=== PATIENT | female | born 1950 | race Caucasian/White ===

== ENCOUNTER → 2016-12-24 | Day surgery (SDC) | payer MEDICARE, BC, OTHER ==
[~2016-12-24] MED LIST: ALBUAER3 INH; ALPHTAB PO; AMLO2.5T PO; ASPI325T PO; ASTA1CAP2 PO; BACL20TA PO; BIOT1SUB SL; BUPIVACAINE HCL PF 0.5% 30 ML VIAL ONE; BUPR100CR PO; FURO1TAB62 PO; LEVO25TA4 PO; LIDO0.052; LOSA50TA PO; METF500T PO; MULT-142 PO; OCUVTAB PO; OPTI0.5D EACH EYE; POTA-163 PO; PROPOFOL 200 MG/20 ML AMP IV ONE; SIMV40TA PO; TIOT1AER INH; TRIAMCINOLONE ACETONIDE 40 MG/ML VIAL I-ARTICULR ONE; VITA10003 PO; ZYRT10CA PO; methylPREDNISolone ACETATE 40 MG/ML VIAL I-ARTICULR ONE
--- NOTE | 2016-12-29 06:22 | M6 ---
cc: JUVENAL HOBSON M.D. DATE: 12/24/2016 DATE OF : 06/16/1958 PROCEDURE Fluoroscopically guided injection bilateral sacroiliac joints. History and physical was completed and signed. Consent was signed. Procedure site was marked. Medications were listed and reconciled. Pain score was recorded. Allergies were noted. Time out was taken. Fluoroscopy time was recorded where applicable. Sedation was administered or directed by Dr. Hobson. The patient was given oxygen. The patient was monitored by a registered nurse. Total procedure time was greater than 15 minutes. PROCEDURE NOTE: IV was started, blood pressure cuff, pulse oximeter and EKG were applied. The patient was placed in the prone position on a Myles table sedated with small amounts of propofol titrated to effect. Vital signs were monitored and remained stable throughout the procedure. The lumbar area was prepped with alcohol and 10% Betadine solution, draped with sterile drapes. Fluoroscopy was used shooting from medial to lateral to clearly visualize the posterior joint line of the bilateral sacroiliac joints. Separate sterile 5-inch 22-gauge spinal needles were advanced into these joints under fluoroscopic guidance. There was negative aspiration for blood or any other type of fluid and at each location the patient was given 2 mL of 0.5% Marcaine, 20 mg of Depo-Medrol and 20 mg of Kenalog. Following the procedure the patient was taken to the recovery room with stable vital signs neurologically intact. She will be evaluated immediately and with followup to determine if she has a subjective decrease in her usual pain and a corresponding objective increase in her functional capabilities. W. MD HANNA Al/SARAVANAN /8:57 AM /6:18 AM
== END | disposition home or self-care (01) ==
LOC: PHSDC 07:08
PROVIDERS: ATTEND Pain Medicine Interventional Pain Medicine
DX: M54.5 Low back pain (principal)
CPT/HCPCS: 99152; G0260; J1030; J3301; 27096